=== PATIENT | male | born 1940 | race Caucasian/White ===

== ENCOUNTER 2019-03-13 10:02 | Outpatient (CLI) | payer MEDICARE ==
--- NOTE | 2019-03-13 10:27 | RAD ---
PA AND LATERAL CHEST: Date: 03/13/19 HISTORY: Dyspnea. COMPARISON: 10/17/18 exam. FINDINGS: The heart size is within normal limits. Chronic lung changes are noted. These appear stable as compar ed to the prior study. No new findings. IMPRESSION: Chronic lung changes. Stable chest. POS: [facility]
== END 2019-03-13 10:03 | disposition home or self-care (01) ==
LOC: RAD 10:02
PROVIDERS: ATTEND Internal Medicine Critical Care Medicine
DX: R06.00 Dyspnea, unspecified (principal); J98.4 Other disorders of lung
CPT/HCPCS: 71046

== ENCOUNTER 2021-02-04 11:43 | Outpatient (CLI) | payer MEDICARE | END 2021-02-04 11:44 | disposition home or self-care (01) | LOC: BICRAD 11:43 | PROVIDERS: ATTEND Internal Medicine Critical Care Medicine | DX: R06.00 Dyspnea, unspecified (principal); I51.7 Cardiomegaly; I87.8 Other specified disorders of veins | CPT/HCPCS: 71046 ==

== ENCOUNTER 2022-05-11 08:57 | Outpatient (CLI) | payer MEDICARE | END 2022-05-11 08:58 | disposition home or self-care (01) | LOC: RAD 08:57 | PROVIDERS: ATTEND Internal Medicine Critical Care Medicine | DX: R06.00 Dyspnea, unspecified (principal) | CPT/HCPCS: 71046 ==

== ENCOUNTER 2023-06-29 09:46 | Outpatient (CLI) | payer MEDICARE | END 2023-06-29 09:47 | disposition home or self-care (01) | LOC: RAD 09:46 | PROVIDERS: ATTEND Internal Medicine Critical Care Medicine | DX: R06.00 Dyspnea, unspecified (principal) | CPT/HCPCS: 71046 ==